=== PATIENT | female | born 1930 | race Caucasian/White ===

== ENCOUNTER 2018-07-19 14:03 | Outpatient (CLI) | payer MEDICARE ==
--- NOTE | 2018-07-19 14:45 | RAD ---
Exam: 2 VIEWS THORACIC SPINE: HISTORY: Osteoporosis with current pathologic fracture. T7 fracture 1 year ago. COMPARISON: None. FINDINGS: 2 views of thoracic spine demonstrate diffuse bone demineralization. 12 thoracic type verte bral bodies. Presumed chronic compression fracture at T7 with associated vertebral plana. Additional thoracic line fractures are not appreciated. There is leftward curvature of the visualized lumbar spine Atherosclerosis of the aorta is noted. IMPRESSION: Diffuse bone demineralization. 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 I f there is concern for acute injury, MRI may be beneficial. Transcribed Date/Time: 07/19/2018 3:25 PM
== END 2018-07-19 14:04 | disposition home or self-care (01) ==
LOC: SCSRAD 14:03
PROVIDERS: ATTEND Family Medicine
DX: M80.08XD Age-related osteoporosis with current pathological fracture, vertebra(e), subsequent encounter for fracture with routine healing (principal)
CPT/HCPCS: 72072

== ENCOUNTER 2018-08-07 13:37 | Emergency (ER) | payer MEDICARE ==
--- NOTE | 2018-08-07 14:45 | RAD ---
3 views left wrist. HISTORY: Fall left wrist pain. AP, lateral and oblique views left wrist is obtained. No evidence of left wrist fractures, subluxations or bony lesions seen. IMPRESSION: Normal 3 views left wrist.
== END 2018-08-07 14:54 | disposition home or self-care (01) ==
LOC: SCSER 13:37
DX: S60.212A Contusion of left wrist, initial encounter (principal); I48.91 Unspecified atrial fibrillation; I10 Essential (primary) hypertension; W01.198A Fall on same level from slipping, tripping and stumbling with subsequent striking against other object, initial encounter

== ENCOUNTER 2019-01-22 14:43 | Outpatient (CLI) | payer MEDICARE ==
--- NOTE | 2019-01-22 17:04 | RAD ---
THORACIC SPINE 3 VIEWS: Date: 01/22/19 HISTORY: Follow-up compression/burst fracture, osteoporosis. COMPARISON: 07/19/18. FINDINGS: Greater than 50% vertical height loss fracture of C7 with some retropulsion, stable. Bony demineraliz ation. Generalized spondylosis. Levoscoliosis of the lumbar vertebral column. IMPRESSION: Stable burst fracture of C7. Spondylosis. Bony demineralization. Levoscoliosis lumbar vertebral colum n, Stable from prior study. POS: [facility]
[2019-01-22 18:14] LABS: #Eosinphils 0.1 thou/uL (0.0-0.7); #Lymphocytes 1.1 thou/uL (1.20-3.40); #Monocytes 0.6 thou/uL (0.11-0.59); #Neutrophils 3.7 thou/uL (1.40-6.50); %Basophils 0.1 % (0.0-1.0); %Eosinophils 2.2 % (0.0-10.0); %Lymphocytes 19.7 % (21.0-51.0); %Neutrophils 66.9 % (42.0-75.0); Hemoglobin 13.5 g/dL (12.0-16.0); Mean Corpuscular HGB CONC 33.7 g/dL (32.0-36.0); Mean Corpuscular Hemoglobin 32.7 pg (27.0-31.0); Mean Corpuscular Volume 97.2 fL (78.0-98.0); Mean Platelet Volume 8.3 fL (7.4-10.4); Platelet Count 161 thou/uL (130-400); RBC Distribution Width 12.5 % (11.5-14.5); Red Blood Cell (RBC) Count 4.12 mill/uL (4.20-5.40); White Blood Cell (WBC) Count 5.5 thou/uL (4.8-10.8)
[2019-01-22 18:33] LABS: ALT (SGPT) 22 U/L (8-55); AST (SGOT) 22 U/L (5-34); Albumin 4.6 g/dL (3.4-4.8); Alkaline Phosphatase 75 U/L (40-110); Anion Gap 9 mmol/L (10-20); BUN (Urea Nitrogen) 19 mg/dL (9.8-20.1); Bilirubin, Total 0.7 mg/dL (0.2-1.2); Calc. Creatinine Clearance 0 mL/min (70-130); Calcium 9.7 mg/dL (7.8-10.44); Carbon Dioxide 33 mmol/L (23-31); Chloride 95 mmol/L (98-107); Estimated GFR-MDRD 34; Globulin 2.9 g/dL (2.4-3.5); Glucose 141 mg/dL (83-110); Protein, Total 7.5 g/dL (6.0-8.3); Sodium 133 mmol/L (136-145)
[2019-01-22 18:47] LABS: Thyroid Stimulating Hormone 1.8606 uIU/mL (0.35-4.94); Vitamin D, 25 Hydroxy 27.3 ng/ml (> 30.0)
== END 2019-01-22 14:44 | disposition home or self-care (01) ==
LOC: SCSRAD 14:43
PROVIDERS: ATTEND Family Medicine
DX: M80.00XS Age-related osteoporosis with current pathological fracture, unspecified site, sequela (principal); S12.600A Unspecified displaced fracture of seventh cervical vertebra, initial encounter for closed fracture; M81.0 Age-related osteoporosis without current pathological fracture; M41.9 Scoliosis, unspecified
CPT/HCPCS: 72072; 80053; 82306; 84443; 85025

== ENCOUNTER 2019-01-31 14:21 | Outpatient (CLI) | payer MEDICARE ==
--- NOTE | 2019-01-31 15:33 | BD ---
BONE DENSITOMETRY USING DEXA 01/31/19 HISTORY: Postmenopausal screening for osteoporosis. Lumbar Spine: BMD (g/cm2) T-SCORE L1 0.684 -2.8 L2 0.883 -1.3 L3 0.890 -1.8 L4 0.960 -0.9 L1-L4 0.855 -1.7 Femoral Neck: 0.517 -3.0 Total Femur: 0.593 -2.9 Impression: Osteoporosis. POS: [facility]
== END 2019-01-31 14:22 | disposition home or self-care (01) ==
LOC: BICMAMMO 14:21
PROVIDERS: ATTEND Family Medicine
DX: M80.00XS Age-related osteoporosis with current pathological fracture, unspecified site, sequela (principal)
CPT/HCPCS: 77080